=== PATIENT | male | born 1955 | race African-American/Black ===

== ENCOUNTER 2016-08-08 15:42 | Inpatient (IN) | payer MEDICAID ==
[~2016-08-08] VITALS: Ht 185.4 cm; Wt 131.5 kg
[2016-08-08 20:03] VITALS: BP 133/83
--- NOTE | 2016-08-08 20:59 | NUR ---
PT RECEIVED VIA STRETCHER FROM ER DURING PM SHIFT CHANGE, AWAKE, ALERT, ORIENTED, ARMED POLICE OFFICERS AT BEDSIDE. PT IS C/O GENERALIZED PAIN, WITH EMPHASIS TO HIS RIGHT FOOT. PT HAS MULTIPLE OPEN SORES, BILATERAL HIPS, FEET, LEGS, FOUL SMELLING, AND PAINFUL. HAVE PAGED DR. SHARMA FOR FURTHER ORDERS AND PAIN CONTROL. PTS LEFT AC IV HAS INFILTRATED. WILL RESITE RICARDO. PT DID RECEIVE A TURKEY SANDWICH TRAY UPON ARRIVAL ON THIS UNIT, CURRENTLY ON A DIABETIC DIET. NO ORDERS FOR FSBS AT THIS TIME. PT STATES HE TAKES 70/30 BID. ARMED COAL PASSER AT BEDSIDE. WILL CONTINUE TO MONITOR CLOSELY. WILL ELEVATE AND BRIDGE LEGS AND HEELS, AND PLACE PILLOWS UNDER HIPS. PT STATES HE HAS CHRONIC BACK PAIN FROM MULTIPLE SURGERIES AND IS UNAMBULATORY AT THIS TIME.
--- NOTE | 2016-08-08 23:53 | NUR ---
21:30 - DR. SHARMA VIA TELEPHONE GAVE VERBAL ORDERS FOR DILAUDID RESERVE OPERATOR, NS, FSBS, AND NPO AFTER MIDNIGHT FOR UPCOMING PROCEDURES OF WOUND DEBRIDEMENT AND PICC PLACEMENT.
[2016-08-09] VITALS (7 sets, daily range): BP systolic 133–228; BP diastolic 75–134; Ht 185.4 cm; Wt 131.5 kg
--- NOTE | 2016-08-09 00:43 | NUR ---
PT AWAKE, ALERT, ORIENTED, STATES STAGE HAND DILAUDID IS HELPING WITH PAIN. DENIES ANY NEEDS. PT IS CURRENTLY NPO FOR UPCOMING PROCEDURES. CONTINUE TO MONITOR CLOSELY.
--- NOTE | 2016-08-09 07:25 | NUR ---
RECEIVED REPORT FROM METAL TANK BUILDER NURSE, SHAMAR RIDER. PT IN BED, DENIES ANY NEEDS AT THIS TIME. CALL LIGHT IN REACH, PROFESSOR OF FINE ART AT BEDSIDE, NAD NOTED, WILL CONTINUE TO MONITOR.
[2016-08-09 07:31] LABS: ALBUMIN 2.4 g/dL (3.4-5.0); ALKALINE PHOSPHATASE 92 U/L (46-116); ALT (SGPT) 16 U/L (10-68); CALC OSMOLALITY 272 mosm/kg (275-300); CALCIUM 9.1 mg/dL (8.5-10.1); CHLORIDE - SERUM 99 mmol/L (98-107); CREATININE - SERUM 0.9 mg/dL (0.6-1.3); GLUCOSE 141 mg/dL (74-106); POTASSIUM - SERUM 3.9 mmol/L (3.5-5.1); PROTEIN - SERUM 8.6 g/dL (6.4-8.2); SODIUM 136 mmol/L (136-145); UREA NITROGEN 11 mg/dL (7-18); eGFR NON AFRICAN AMERICAN > 90 mL/min (90-120)
[2016-08-09 07:36] LABS: INR 1.18 (0.85-1.17); PROTIME 14.9 SECONDS (11.6-15.0)
[2016-08-09 07:50] LABS: HEMATOCRIT 32.3 % (42.0-54.0); HEMOGLOBIN 10.2 g/dL (13.5-17.5); LYMPHOCYTES 31.8 % (15-50); MCH 25.7 pg (26.0-34.0); MCHC 31.6 g/dL (31.0-37.0); MCV 81.4 fL (80.0-100.0); NEUTROPHILS 56.7 % (40-80); PLATELET COUNT 430 10x3/uL (130-400); RBC 3.97 10x6/uL (4.20-6.10); RDW 16.6 % (11.5-14.5); WBC 10.4 10x3/uL (4.8-10.8)
--- NOTE | 2016-08-09 10:24 | NUR ---
CONSENTS SIGNED FOR OR LATER TODAY. PATIENT UNDERSTANDS. GUARD WITH PATIENT
--- NOTE | 2016-08-09 10:56 | NUR ---
PATIENT CO NAUSEA. REGULAR SCHEDULED PEPCID GIVEN. 10 MINTUES LATER PATIENT VOMITED. MEDICATED WTIH ZOFRAN4 MG IV. PATIENT ALSO PLACED IN ISOLATION BY INFECTION CONTROL NURSE. PATIENT INSISITED BS TO BE CHECKED BECAUSE HE FELT IT WAS LOW. FS DONE. BS WAS 171.
--- NOTE | 2016-08-09 15:49 | NUR ---
ADMINISTERED PT 4MG OF ZOFRAN FOR C/O OF NAUSEA, ALSO DID EKG AND PLACED ON CHART. PROVIDED PT WITH CUP OF ICE WATER, PT DENIES ANY OTHER NEEDS AT THIS TIME. CALL LIGHT IN REACHKEENA AT BEDSIDE, NAD NOTED, WILL CONTINUE TO MONITOR.
--- NOTE | 2016-08-09 19:00 | NUR ---
PAGED DR. SHARMA, WAITING ON HIM TO CALL BACK.
[2016-08-09] MEDS ORDERED: ZANTAC300 MG PO (22:46)
[2016-08-09] MEDS ORDERED: COLACE100 MG PO (22:48)
[2016-08-09] MEDS ORDERED: GENTAMICIN80 MG/2 ML IM (22:50)
[2016-08-09] MEDS ORDERED: FLAGYL500 MG PO (22:52)
[2016-08-09] MEDS ORDERED: AMOXICILLIN500 M1 PO (22:53)
[2016-08-09] MEDS ORDERED: ACETAMINOPHEN325 MG PO (23:02)
[2016-08-09] MEDS ORDERED: CATAPRES0.2 MG PO (23:05)
[2016-08-09] MEDS ORDERED: SANTYL30 GM TP (23:11)
[2016-08-09] MEDS ORDERED: ZINC OXIDE 20 %30 GM TOPICAL (23:12)
[2016-08-09] MEDS ORDERED: BANOPHEN25 MG PO (23:12)
[2016-08-09] MEDS ORDERED: LASIX40 MG PO (23:13)
[2016-08-09] MEDS ORDERED: COREG6.25 MG PO (23:14)
[2016-08-09] MEDS ORDERED: LIPITOR40 MG PO (23:14)
[2016-08-09] MEDS ORDERED: ULTRAM50 MG PO (23:15)
[2016-08-09] MEDS ORDERED: HUMULIN 70100 UNIT/1 SC ×2 (23:16→23:22)
[2016-08-09] MEDS ORDERED: NEURONTIN 300300 MG PO (23:16)
[2016-08-09] MEDS ORDERED: K-DUR20 MEQ PO (23:17)
[2016-08-09] MEDS ORDERED: CARDURA2 MG PO (23:18)
[2016-08-09] MEDS ORDERED: PROVENTIL/2.5 MG/3 M INH (23:19)
[2016-08-09] MEDS ORDERED: HUMULIN R100 U/ML SC (23:21)
[2016-08-09 23:30] LABS: APPEARANCE HAZY (CLEAR); BILIRUBIN NEGATIVE (NEGATIVE); COLOR DK YELLOW (YELLOW); GLUCOSE NEGATIVE (NEGATIVE); KETONE MODERATE mg/dL (NEGATIVE); LEUKOCYTE ESTERASE TRACE (NEGATIVE); NITRITE NEGATIVE (NEGATIVE); PROTEIN 2+ mg/dL (NEGATIVE)
[2016-08-09 23:33] LABS: AMORPHOUS SEDIMENT >1+ /lpf (NONE SEEN); BACTERIA MANY /hpf (NONE SEEN); GRANULAR CAST OCC /lpf (NONE SEEN); HYALINE CAST OCC /lpf (NONE SEEN); MUCUS <1+ /lpf (NONE SEEN)
[2016-08-10 02:05] VITALS: BP 184/75
--- NOTE | 2016-08-10 02:20 | NUR ---
LYING IN BED WITH CALL LIGHT IN REACH. WILL CONTINUE WITH PLAN OF CARE.
[2016-08-10 05:19] VITALS: BP 160/107
--- NOTE | 2016-08-10 07:00 | NUR ---
RECEIVED REPORT FROM RN BUILDING NURSE, LANETTE RIDER. PT IN BED, NAD NOTED, CALL LIGHT IN REACH, FAMILY AT BEDSIDE, WILL CONTINUE TO MONITOR.
--- NOTE | 2016-08-10 07:00 | NUR ---
RECEIVED REPORT FROM ORGANIZATIONAL DEVELOPMENT MANAGER NURSE, LANETTE RIDER. PT IN BED, DENIES ANY NEEDS AT THIS TIME. DYE STAND LOADER AT BEDSIDE, NAD NOTED, CALL LIGHT IN REACH, WILL CONTINUE TO MONITOR.
--- NOTE | 2016-08-10 08:39 | NUR ---
ADMINISTERED MEDICATIONS SCHEDULED AND 4MG OF ZOFRAN FOR C/O OF NAUSEA, PT IN BED, DENIES ANY NEEDS AT THIS TIME, KEENA NUNEZ AT BEDSIDE, NAD NOTED, WILL CONTINUE TO MONITOR.
[2016-08-10 08:50] VITALS: BP 155/94
--- NOTE | 2016-08-10 10:15 | NUR ---
WENT TO HANG IVPB VANCOMYCIN, PT AWAKE AT THIS TIME, PT ASKED HELP ADJUSTING O2 TUBING. I WAS HANGING IVPB, I LOOKED UP AT LAUNCHMAN SEATING AT BEDSIDE AND NOTICED THAT GUARD HAD EYES CLOSED AND APPEARED TO BE ASLEEP. PT DENIES ANY OTHER NEEDS AT THIS TIME. CALL LIGHT IN REACH, NAD NOTED, WILL CONTINUE TO MONITOR.
--- NOTE | 2016-08-10 10:15 | NUR ---
WHILE PUTTING NEW ISOLATION GOWNS IN CONTAINER I WENT TO CHECK IF GUARD IN ROOM NEEDED A GOWN. GUARD WAS SITTING IN RECLINER WITH EYES CLOSED. ALTON/ADRY WAS IN ROOM GIVING MEDICATION AND SPEAKING. GUARD OPENED EYES SLOWLY THEN CLOSED EYES BACK AND DID NOT REOPEN THEM. I ADVISED LUKE/DYE HOUSE HAND THAT GUARD WAS IN ROOM IN CHAIR WITH EYES CLOSED AND APPEARD TO BE ASLEEP.
--- NOTE | 2016-08-10 11:00 | NUR ---
AT APPROXIMATELY 10:15 AM ON 08/10/16 MASON WAS INFORMED BY PATIENT DIAMOND POWDER TECHNICIAN NORRIS ARIAS RN THAT GUARD STATIONED AT PATIENT'S BEDSIDE WAS RECLINED IN CHAIR, WITH BLANKET COVERING HER AND GUARDS EYES WERE CLOSED. DARY PISANO STATED THAT SHE HAD NOTIFIED MED 2 EDGER AUTOMATIC LUKE CARO OF ABOVE AND THAT LUKE HAD CONTACTED KAITLIN REVELES. AT APPROXIMATELY 10:30 AM ON 08/10/16 MASON RECEIVED TELEPHONE CALL FROM CORY WITH [employer] REQUESTING CLINICAL UPDATE ON PATIENT. MASON DISCUSSSED WITH CORY THE ABOVE INCIDENT BROUGHT TO CM'S ATTENTION. CORY ASKED FOR NAMES OF WITNESSES OF ABOVE AND CM PROVIDED THAT INFORMATION. CORY STATED "THIS WILL BE TAKEN CARE OF" AND MASON INFORMED CORY THAT EDGER AUTOMATIC AND KAITLIN REVELES HAD BEEN MADE AWARE OF ABOVE.
--- NOTE | 2016-08-10 11:14 | NUR ---
AT APPROXIMATELY 10:15 AM ON 08/10/16 MASON WAS INFORMED BY PATIENT EMBROIDERY OPERATOR NORRIS ARIAS RN THAT GUARD STATIONED AT PATIENT'S BEDSIDE WAS RECLINED IN CHAIR, WITH JACKET OFF AND COVERING HER UPPER BODY AND THAT GUARD'S EYES WERE CLOSED AND THAT GUARD APPEARED TO BE SLEEPING. ADRY PISANO STATED THAT SHE HAD NOTIFIED SHAWANDA FUNEZ 2 BUSINESS UNIT MANAGER OF [facility] AND THAT LUKE HAD CONTACED KAITLIN REVELES. AT APPROXIMATELY 10:30 AM ON 08/10/16 MASON RECEIVED TELEPHONE CALL FROM CORY WITH [employer] REQUESTING CLINICAL UPDATE ON PATIENT. MASON PROVIDED CORY WITH CLINICAL UPDATE AND THEN DISCUSSED WITH CORY THE ABOVE INCIDENT BROUGHT TO MASON'S ATTENTION. CORY ASKED FOR NAMES OF WITNESSES OF ABOVE EVENT AND MASON PROVIDED THAT INFORMATION. CORY STATED THAT "THIS WILL BE TAKEN CARE OF" AND MASON INFORMED CORY THAT BUSINESS UNIT MANAGER HAD BEEN MADE AWARE OF ABOVE. CM INFORMED LUKE CARO AND KAILTIN REVELES OF TELEPHONE CALL FROM CORY TO MASON AND OF ABOVE DOCUMENTED CONVERSATION WITH CORY.
--- NOTE | 2016-08-10 11:48 | NUR ---
INSERVICED GUARD ON ISOLATION PROCEDURES.
[2016-08-10 12:27] VITALS: BP 149/106
--- NOTE | 2016-08-10 13:35 | NUR ---
PT C/O NAUSEA AND VOMITTING AT THIS TIME, WELDING MACHINE OPERATOR GAS UNCUFFED PT SO THAT NORRIS THORNTON RN AND RIGO FULLER COULD TURN PT TO LEFT SIDE, ADMINISTERED 4MG OF ZOFRAN AT THIS TIME. WELDING MACHINE OPERATOR GAS CUFFED PT'S LEFT ARM TO THE BED. PT DENIES ANY OTHER NEEDS AT THIS TIME. CALL LIGHT IN REACH, NAD NOTED, WILL CONTINUE TO MONITOR.
--- NOTE | 2016-08-10 15:20 | NUR ---
PT TRANSFERED TO OR VIA BED, NAD NOTED.
--- NOTE | 2016-08-10 16:30 | NUR ---
RECEIVED PT BACK TO ROOM 2106, PT VERY COMBATIVE, AND NONCOMPLIANT. VITAL SIGNS AT THIS TIME ARE 138/99, HR 127, RESP 16, TEMP 97.5. DESSERT CUP MACHINE FEEDER AT BEDSIDE TRYING TO CALM PT DOWN, PT PULLED IV OUT, AND TRYING TO PULL PICC LINE. CALLED CIRCUIT MANAGER TO HAVE HER CALLED SECURITY TO COME HELP WITH, CIRCUIT MANAGER STATED THAT DESSERT CUP MACHINE FEEDER WOULD HAVE TO CALL HER OWN BACKUP. PT STILL VERY COMBATIVE STATING " I AM DONE PLAYING, I NEED TO GET UP AND CALL MY SISTER BEFORE IT GETS TOO LATE". DESSERT CUP MACHINE FEEDER CALLED FOR BACK UP, WAITING ON THE BACK UP TO GET HERE. 1700- BACK UP GUARD HERE TO HELP, PT STILL TRYING TO GET OUT OF BED, LEFT HAND CUFFED TO BED. 1710- TALKED TO DR. SPEARS AND INFOMRED HIM THAT PT IS COMBATIVE AND IS TRYING TO PULL IV OUT. ASKED IF WE COULD ORDER HIM SOMETHING FOR AGITATION. DR. SPEARS STATED TO ORDER 1MG OF ATIVAN Q4PRN. WILL PUT ORDER IN AND PASS ON IN REPORT. 1722- PT CALMED DOWN A LITTLE BUT STILL STATING THAT HE WANTS TO GET UP.
--- NOTE | 2016-08-10 17:12 | NUR ---
8117-3104: PT MOVED FROM OR TABLE ONTO STRETCHER. PILLOWS PLACED ON OR TABLE. PT PLACED PRONE ONTO OR TABLE. DRESSINGS REMOVED FROM LEFT BUTTOCK, RIGHT HIP, AND RIGHT HEEL. PACKING REMOVED FROM SACRUM. LOWER BACK, BUTTOCK AND SACRUM PREPED WITH BETADINE PAINT. LEFT AND RIGHT LOWER LEG AND FOOT PREPED WITH BETADINE PAINT.
--- NOTE | 2016-08-10 18:22 | NUR ---
PT REFUSING VITAL SIGNS AT THIS TIME, BREATHING SPONTANEOUS, PINK, SAN CATHETER TO BEDSIDE DRAINAGE.
--- NOTE | 2016-08-10 21:20 | NUR ---
PT IS LYING IN BED, AWAKE, ALERT, CONFUSED, COMBATIVE, AGITATED, THREATENING, AND REFUSING TO COOPERATE. PT IS BEING BELIGERENT, AND ABUSIVE TO STAFF. PRN ATIVAN GIVEN IM PT HAS NEW PICC PLACEMENT BUT WE HAVE NOT RECEIVED AUTHORIZATION TO USE IT YET. WHILE ADMINISTERING PTS 2100 CLONIDINE, HE TURNED HIS HEAD, CAUSING THE TABLET TO FALL TO THE FLOOR. WILL WASTE AND ATTEMPT TO READMINISTER. PT IS EXTREMELY DIFFICULT TO DEAL WITH AT THIS TIME. THERE ARE TWO ARMED OFFICERS AT BEDSIDE, AND PT IS HANDCUFFED TO THE RIGHT BED RAIL. PILLOWS HAVE BEEN PLACED UNDER PTS LEFT SIDE FOR COMFORT AFTER HIS SURGERY. CONTINUE TO MONITOR CLOSELY.
--- NOTE | 2016-08-10 22:09 | NUR ---
WILL ATTEMPT TO READMINISTER PTS CLONIDINE AND OTHER SCHEDULED MEDICATIONS. THE ATIVAN IS HELPING WITH PTS AGITATION. CONTINUE TO MONITOR CLOSELY.
--- NOTE | 2016-08-11 04:06 | NUR ---
PT LYING IN BED, EYES CLOSED, RESPIRATIONS EVEN AND UNLABORED. PT HAS BEEN LESS AGITATED ONCE THE PRN ATIVAN AND AVIATION SURVIVAL TECHNICIAN DILAUDID WERE ADMINISTERED. ARMED OFFICER AT BEDSIDE. PT REMAINS HANDCUFFED TO RIGHT BED RAIL. CONTINUE TO MONITOR CLOSELY. BED LOW, CALL LIGHT IN REACH, SIDE RAILS X 2, HOB 20 DEGREES.
--- NOTE | 2016-08-11 07:45 | NUR ---
received pt report. no other needs at this time. will continue plan of care. no other needs at this time. will continue to monitor.
--- NOTE | 2016-08-11 10:47 | NUR ---
Patient Name: SHERIE COLLINS Admission Status: ER Accout number: [id number] Admission Date: 08-08-2016 : 1955 Admission Diagnosis: Attending: DOROTHY Current LOS: 3 Anticipated DC Date: 08-11-2016 Planned Disposition: Court\Law Enforcement Primary Insurance: MEDICAID SNF PENDING Discharge Planning Comments: * Is the patient Alert and Oriented? Yes 0 * How many steps to enter\exit or inside your home? NONE 0 * PCP DR. MENDOZA 0 * Pharmacy [facility] 0 * Preadmission Environment Other 0 * Other Environment SNF, [facility] 0 * Facility Name [facility] 0 * ADLs Partial Dependent 0 * Partial ADLs (Assistance needed) Bathing Medication Management Toileting Transfers 0 * Equipment Lety Lift Wheelchair 0 * Other Equipment ALL MEDICAL EQUIPMENT PROVIDED BY SNF 0 * List name and contact numbers for known caregivers / representatives who currently or will assist patient after discharge: [facility] 0 * Community resources currently utilized None 0 * Please name any agencies selected above. NONE 0 * Additional services required to return to the preadmission environment? No 0 * Can the patient safely return to the preadmission environment? Yes 0 * Has this patient been hospitalized within the prior 30 days at any hospital? No 0 CM MET WITH PT AND WOOD CABINET FINISHER IN ROOM TO DISCUSS DISCHARGE PLANNING AND NEEDS. PT REPORTS LIVING AT SNF. PT WILL RETURN TO SNF. PT HAS WHEELCHAIR AND LIFT AT SNF AND REQUIRES ASSISTANCE WITH ALL ACTIVITY OTHER THAN DRESSING AND EATING. PT DENIES DISCHARGE NEEDS, REPORTS SNF WILL PROVIDE TRANSPORT BACK. CM ADVISED THAT DR. SHARMA HAS SPOKEN TO DR. MENDOZA AT THE SNF UNIT TODAY AND HE IS BEING ACCEPTED BACK. MIDDLE SCHOOL TECHNOLOGY TEACHER NOTIFIED GUARD IN ROOM THAT PT WOULD TRANSPORT VIA VAN. NO DISCHARGE NEEDS IDENTIFIED. Stonemason Supervisor: Quinton Angel
--- NOTE | 2016-08-11 11:15 | NUR ---
PT IS ALERT. ASSESSMENT DONE PER FLOWSHEET. NO OTHER NEEDS AT THIS TIME. WILL CONTINUE TO MONITOR.
[2016-08-11 12:19] VITALS: BP 152/98
--- NOTE | 2016-08-11 13:20 | NUR ---
NO SS OF DISTRESS WILL CONTINUE TO MONITOR. NO OTHER NEEDDS WILL CONTINUE TO MONITOR.
--- NOTE | 2016-08-11 14:51 | NUR ---
PT DC TEACHING COMPLETE. PT WHEELED OUT WITH EMS AND PRISION GAMARILUZ. NO OTHER NEEDS.
--- NOTE | 2016-09-27 10:17 | HP ---
PATIENT: SHERIE COLLNIS MEDICAL RECORD: [id number] ACCOUNT: [id number] LOCATION:[facility].2107 : 59 ADMISSION DATE: 08/08/16 HISTORY AND PHYSICAL EXAMINATION CHIEF COMPLAINT: Infected ulcers. HISTORY OF PRESENT ILLNESS: This patient was sent from the detention by ambulance. The ambulance went to the nearest appropriate facility, which was our facility. This was not a direct admit. The patient was admitted through the Emergency Room after being evaluated by the Emergency Room physician. Reportedly, the patient got hold of some illicit drugs while in the detention. This caused him to be sedated for several days and he laid in his rack and developed decubitus ulcers. One is at the sacrum and then also both heels. These need to be debrided in the operating room. I will need to place a PICC line either on the left or the right for intravenous antibiotics. The patient underwent an attempted PICC line placement at [facility] and this was not successful. The patient may require a central venous line placement. The risks, possible complications and alternatives to procedure were explained to the patient. He elects to proceed. He has been having a lot of vomiting. I think this is due to septicemia. Palpation aggravates. Nothing alleviates. The symptoms are nonradiating. They are of moderate severity. This is a history and physical addendum. For the typed portion of the history and physical including past medical and surgical history, allergies, current medications, and social history, please see the typed portion on his chart. REVIEW OF SYSTEMS: No fever, no chills. Positive for nausea and vomiting. Positive for sacral pain. Positive for bilateral heel pain. Positive for fatigue. Review systems is negative other than as is described above. PHYSICAL EXAMINATION: GENERAL: The patient appears acutely ill. Also, appears chronically ill. VITAL SIGNS: Reviewed. HEAD: External ears appear normal. EYES: Extraocular movements are intact. NECK: Trachea is midline. CHEST: No intercostal retractions. PULMONARY: Nonlabored. No stridor. ABDOMEN: No peritonitis with movement. EXTREMITIES: No peripheral cyanosis. INTEGUMENT: Ulcers as described above. The sacral ulcer is unstageable at this time. BACK: No thoracic kyphosis. LYMPHATICS: No lymphangitic streaking of the exposed extremities. PSYCHIATRIC: Anxious affect. NEUROLOGIC: Answers questions appropriately. IMPRESSION: Infected sacral and bilateral heel decubitus ulcer. PLAN: Excisional debridement in the operating room. PICC line for intravenous HISTORY AND PHYSICAL [id number] SHERIE COLLINS, left versus right. If the PICC line is unsuccessful, then place a central venous line, so that the patient can received intravenous antibiotics. TRANSINT:[id number] Voice Confirmation ID: [id number] DOCUMENT ID: [id number] MILO SHARMA MD at 1017 CC: MILO HAIRSTON MD, RYLIE PUCKETT DO, GLADYS MENDOZA MD, [id number] MD and MARIA EUGENIA GONZALEZ DICTATION DATE: 08/09/16 1542 PERINATAL SOCIAL WORKER: 08/09/16 1558 DIS IN 08/11/[address] [address]
--- NOTE | 2016-09-27 10:17 | OP ---
PATIENT NAME: SHERIE COLLINS MEDICAL RECORD: [id number] :59 LOCATION:D.M2 D.2107 ADMISSION DATE:08/08/16 SURGEON: MILO SHARMA MD DATE OF OPERATION: 08/10/2016 PREOPERATIVE DIAGNOSIS: Multiple decubitus ulcers, which require debridement and the patient will require intravenous antibiotics so a PICC line is indicated. POSTOPERATIVE DIAGNOSES: Multiple decubitus ulcers, which require debridement and the patient will require intravenous antibiotics so a PICC line is indicated. Please see dimensions below. PROCEDURE: 1. Placement of a left upper extremity PICC catheter, 50 cm via the brachial vein under fluoroscopic guidance. 2. Immediate surgeon interpretation of fluoroscopic images. 3. Excisional debridement of infected left buttock decubitus ulcer. The margins of the debridements were 10.2 x 10.4 cm. There was 3 cm of undermining from 10 o'clock to 2 o'clock. The depth of the wound was 3.2 cm. The debrided tissues were eschar, abscess, nonviable adipose tissue and nonviable muscle. This was a sharp debridement. 4. Excisional debridement of sacral decubitus ulcer, noninfected. The dimensions of debridement, including margins, measured 4.5 cm in the cephalad caudad dimension and 2.0 cm in lateral dimension. The wound was 2.5 cm deep. This was a sharp excisional debridement. 5. Incisional debridement of right buttock decubitus ulcer. The dimensions of the debridement, including margins, measured 3.0 x 1.5 cm including epidermis and subdermis only. The depths of the wound was 2 mm. 6. Incisional debridement of left leg decubitus ulcer. The cephalad caudad dimension was 6.5 cm and the lateral dimension was 2.0 cm. The debridement included epidermis only. 7. Excisional debridement of left heel decubitus ulcer. The dimensions of the debridement, including margins, measured 5.5 x 7.0 cm. The depth of the debridement was 2.5 cm. This did not involve any bony structures. 8. Excisional debridement of left foot decubitus ulcer. This was on the forefoot. The dimensions of the debridement, including margins, measured 2.2 x 2.0 cm and was 2 mm in depth. The debrided tissues were epidermis and dermis. 9. Excisional debridement of right heel decubitus ulcer, infected. The dimensions of the debridement, including margins, measured 9.0 cm x 8.2 cm. The wound was 2 cm in depth. The debrided tissues were eschar, abscess cavity, ligamentous structures, subcutaneous tissue as well as a significant portion of the calcaneus. Osteomyelitis was present. 10. Excisional debridement of right foot decubitus ulcer. This was on the forefoot. The debrided tissues, including margins, measured 5.0 x 3.5 cm and was 2 mm in depth. The debrided tissues were epidermis and dermis. SURGEON: Milo Sharma MD TANK TRUCK MILK RECEIVER: None. BLOOD LOSS: 50 cc. ANESTHESIA: General. OPERATIVE REPORT [id number] SHERIE COLLINS COMPLICATIONS: None. No radiologist was present for this procedure. Static fluoroscopic images were obtained and are kept in the PACS system. The surgeon interpretation of the radiographic images is dictated within the body of this operative note. OPERATIVE COURSE OPERATIVE COURSE: The patient was conveyed to the operating room electively on 08/10/2016. General anesthesia was induced by the anesthesia staff. The patient was positioned supine. The left upper extremity was abducted at 90 degrees to the patient's trunk. The left upper extremity was sterilely prepped and draped. Under ultrasonographic guidance, I noted a sclerotic very small basilic vein in the arm. Also, a very small sclerotic cephalic vein in the arm. The patient had a generous brachial vein. I felt that a brachial PICC line could be placed safely. Under ultrasonographic guidance, I percutaneously accessed the basilic vein easily. A guidewire passed easily. This was followed fluoroscopically, so the wire was advanced until it was in the right side of the heart. A small skin daniel was accomplished around the wire. Dilator introducer was advanced over the wire. The dilator was removed. Over the introducer, a shortened PICC catheter was advanced. This was shortened to 50 cm. The peel-away introducer was then removed. The wire was removed. An image over the mediastinum revealed that the catheter tip was near the cavoatrial junction. Both lumens flushed easily and aspirated dark, nonpulsatile blood. A Biopatch device was placed. I used the PICC adhesive fixation device to fixate the hub of the PICC catheter to the underlying skin. Also, sutured one of the lumens down to the underlying skin with a 2-0 silk. A sterile dressing was applied. The patient was then positioned prone. The areas to be debrided are listed above. The buttocks, lower back and both lower extremities were sterilely prepped and draped. The debridements were carried out with a scalpel. Bovie electrocautery as well as with rongeurs. The debrided tissues are listed above. The left buttock and both heel injuries are really going to be devastating injuries and I am not sure that the patient is going to ever heal up of the heel ulcers and may ultimately require bilateral lower extremity amputations. Cultures were obtained from the left buttock as well as the right heel. I debrided back to viable bleeding tissue. This was sharp debridement. Meticulous hemostasis was achieved with the electrocautery as well as with hydrogen peroxide. The wounds were then packed with saline, wet-to-dry dressings. The patient was then extubated and conveyed to post-anesthesia care unit. He is going to require narcotic IV analgesia overnight. My plan is to try to get him back to the half-way in the next few days. I am fearful that he may never heal up the heel ulcers. Really, these are devastating number of ulcers and the size and their locations make them very challenging to heal. TRANSINT:[id number] Voice Confirmation ID: [id number] DOCUMENT ID: [id number] OPERATIVE REPORT [id number] SHERIE COLLINS, MILO BURCH at 1017 CC: MILO HAIRSTON MD, RYLIE PUCKETT DO, MCKINNEY, GREGORY SCOTT MD, [id number] MD and MARIA EUGENIA GONZALEZ DICTATION DATE: 08/10/16 1800 SHIP UNLOADER: 08/10/16 2110 DIS IN 08/11/16 [facility] [address] [place] [address]
--- NOTE | 2016-09-27 10:17 | DS ---
PATIENT:SHERIE COLLINS :59 MEDICAL RECORD: [id number] DISCHARGE SUMMARY ADMISSION DATE: 08/08/16 DISCHARGE DATE: 08/11/16 PRINCIPAL DIAGNOSES: 1. Multiple decubitus ulcers of the back, buttocks, sacrum, and both heels with infection and osteomyelitis of the right heel. 2. Noncompliance. 3. Septicemia. PROCEDURE: 1. Left upper extremity PICC placement. 2. Excisional debridement of multiple decubitus ulcers. HOSPITAL COURSE: The patient was admitted. Initially, he refused surgery. The following day, he elected for surgery. The above operative procedure was performed. The next day, the patient was complaining of pain, but was not using his EMPLOYEE SERVICES MANAGER. I instructed him on his EMPLOYEE SERVICES MANAGER use. There was no motor defect or sensory defect involving the left upper extremity. No paresthesias or numbness involving the left upper extremity. The patient is being dismissed back to the intermediate. I have discussed his case with Dr. Bar who was at the intermediate physician monotype machinist. It is very likely the patient will require a right lower extremity amputation and perhaps bilateral lower extremity amputations. I cannot imagine how he is going to ever heal up the right lower extremity. I have discussed this with the patient. TRANSINT:[id number] Voice Confirmation ID: [id number] DOCUMENT ID: [id number] MILO SHARMA MD at 1017 CC: [id number] DICTATION DATE: 08/11/16 1006 LOAD DISPATCHER LOCAL: 08/11/16 1049 DIS IN 08/11/16 [address] [place] [address]
== END 2016-08-11 14:52 | DRG 572 ==
LOC: D.ER 15:42 → D.M2 17:19 → D.ER 17:19 → OBSVTIME 17:19 → D.M2 17:20
PROVIDERS: ADMIT Surgery
PROC: 0HBNXZZ Excision of Left Foot Skin, External Approach (ICD-10-PCS; 2016-08-10)
PROC: 0HBMXZZ Excision of Right Foot Skin, External Approach (ICD-10-PCS; 2016-08-10)
PROC: 0QBL0ZZ Excision of Right Tarsal, Open Approach (ICD-10-PCS; 2016-08-10)
PROC: 0HD8XZZ Extraction of Buttock Skin, External Approach (ICD-10-PCS; 2016-08-10)
PROC: 0HDLXZZ Extraction of Left Lower Leg Skin, External Approach (ICD-10-PCS; 2016-08-10)
PROC: 02HV33Z Insertion of Infusion Device into Superior Vena Cava, Percutaneous Approach (ICD-10-PCS; 2016-08-10)
PROC: B5181ZA Fluoroscopy of Superior Vena Cava using Low Osmolar Contrast, Guidance (ICD-10-PCS; 2016-08-10)
PROC: B548ZZA Ultrasonography of Superior Vena Cava, Guidance (ICD-10-PCS; 2016-08-10)
PROC: 0KBP0ZZ Excision of Left Hip Muscle, Open Approach (ICD-10-PCS; principal; 2016-08-10 12:05)
PROC: 0HB6XZZ Excision of Back Skin, External Approach (ICD-10-PCS; 2016-08-10 12:05)
DX: L89.150 Pressure ulcer of sacral region, unstageable (principal); L89.620 Pressure ulcer of left heel, unstageable; L89.610 Pressure ulcer of right heel, unstageable; E11.42 Type 2 diabetes mellitus with diabetic polyneuropathy; L89.320 Pressure ulcer of left buttock, unstageable; L89.899 Pressure ulcer of other site, unspecified stage; E11.9 Type 2 diabetes mellitus without complications; B19.20 Unspecified viral hepatitis C without hepatic coma; K21.9 Gastro-esophageal reflux disease without esophagitis; I10 Essential (primary) hypertension